=== PATIENT | male | born 1980 | race Caucasian/White ===

== ENCOUNTER 2017-03-14 18:29 | Emergency (ER) | payer OTHER ==
[~2017-03-14] VITALS: Ht 185.4 cm; Wt 113.4 kg
[~2017-03-14 18:29] MED LIST: AZITHROMYCIN 2250 MG PO; ERYTHROMYCIN E400 MG PO; FLEXERIL PO; HYDROCHLOROTHIA25 M1 PO; IBUPROFEN 600600 M1 PO; IBUPROFEN 800800 M1 PO; IBUPROFEN 800800 MG PO; MUCINEX D TABL1 EAC1 PO; NOHOMEMEDICATIONS; PHENERGAN 25 MG25 M1 PO; PHENERGAN50 MG RC; TESSALON PERLE100 MG PO; ZOFRAN ODT4 MG PO; ZPAK PO
[2017-03-14 19:18] LABS: URINE BILIRUBIN NEGATIVE (Negative); URINE BLOOD NEGATIVE (Negative); URINE COLOR YELLOW; URINE GLUCOSE-RANDOM* NEGATIVE (Negative); URINE KETONES NEGATIVE (Negative); URINE NITRITE NEGATIVE (Negative); URINE PROTEIN (DIPSTICK) NEGATIVE (Negative); URINE SPECIFIC GRAVITY >= 1.030 (1.003-1.035); URINE UROBILINOGEN 0.2 E.U./dl (0.2-1.0)
[2017-03-14 19:25] LABS: ABSOLUTE NEUTROPHILS 5.3 thou/uL (1.4-8.2); BASOPHILS 0.6 % (0.0-2.0); EOSINOPHILS 1.4 % (0.0-3.0); HEMOGLOBIN 14.5 gm/dL (14.0-18.0); LYMPHOCYTES 32.3 % (24.0-44.0); MCH 29.7 pg (26.0-34.0); MCHC 34.5 g/dL (28.0-37.0); PLATELET COUNT 286 thou/uL (150-400); POLYS 56.7 % (36.0-66.0); RBC 4.88 mil/uL (4.50-6.00); RDW 13.8 % (10.5-14.5); WBC 9.3 thou/uL (4.0-11.0)
[2017-03-14 19:26] LABS: ANION GAP 9 mmol/L (7-16); BUN 12 mg/dL (7-18); CHLORIDE 104 mmol/L (98-107); CO2 25 mmol/L (21-32); CREATININE 1.1 mg/dL (0.7-1.3); GLUCOSE 98 mg/dL (74-106); MANUAL DIFF NO; SODIUM 138 mmol/L (136-145)
[2017-03-14 19:31] LABS: ALBUMIN 4.1 g/dL (3.4-5.0); ALKALINE PHOSPHATASE 42 U/L (46-116); DIRECT BILIRUBIN < 0.1 mg/dL (<0.1-0.3); SGOT 32 U/L (15-37); SGPT 41 U/L (30-65); TOTAL BILIRUBIN 0.5 mg/dL (<0.1-1.0); TOTAL PROTEIN 7.6 g/dL (6.4-8.2)
[2017-03-14 20:50] VITALS: BP 125/65
== END 2017-03-14 20:52 | disposition home or self-care (01) ==
LOC: ER 18:29
PROVIDERS: Nurse Practitioner
DX: R10.84 Generalized abdominal pain (principal); E78.5 Hyperlipidemia, unspecified; I10 Essential (primary) hypertension